=== PATIENT | female | born 1970 | race Hispanic/Latino ===

== ENCOUNTER → 2018-09-04 | Day surgery (SDC) | payer BC ==
[~2018-09-04] MED LIST: BENADRYL25 M1 PO; DEXILANT60 MG; FENTANYL CITRATE/PF 100MCG/2 ML INJ ONE; GLUCAGON FOR INJ 1 MG VIAL ONE; LIDOCAINE HCL 1% 2 ML AMP ONE; LIDOCAINE HCL 2% LOCAL INJ 5 ML SDV VIAL INJ ONE; METOCLOPRAMIDE HCL 10 MG/2ML VIAL ONE; MIDAZOLAM HCL 2 MG/2 ML VIAL ONE; NORCO 5-325 TA1 EACH PO; PANTOPRAZOLE SO40 MG PO; PROPOFOL IV EMULSION 10 MG/ML 50 ML VIAL ONE; TYLENOL WITH C1 EACH PO; ZYRTEC-D TABLE1 EACH PO
--- NOTE | 2018-09-04 19:28 | Operative Report ---
DATE OF PROCEDURE: 09/04/2018 SURGEON: Jonathan Xiong MD PROCEDURE: EGD with biopsies. INDICATIONS: Upper abdominal pain, exacerbated with meals. MEDICATIONS: The patient was done under MAC. Please see anesthesiologist's note. PROCEDURE IN DETAIL: With the patient in left lateral decubitus position, flexible fiberoptic Olympus gastroscope was introduced into the esophagus under direct visualization without any difficulty. The esophagus appeared to be within normal limits. The scope was then advanced into the gastric pouch traversing a small sliding hiatal hernia. The Francisco-en-Y anastomosis was noted to be 5 cm distal to the GE junction, it appeared intact. There were some focal nodularity noted at the GE junction, most likely postoperative changes, but biopsies were obtained. The scope was passed into the efferent loop, which was patent and biopsies were obtained. The scope was then withdrawn back into the gastric pouch and retroflexed and some postoperative changes were noted, but otherwise was unremarkable. The scope was then straightened out, it was subsequently withdrawn. The patient tolerated the procedure well. IMPRESSION: 1. Normal esophagus. 2. Small sliding hiatal hernia. 3. Status post Francisco-en-Y. Anastomosis intact. Focal nodularity at the anastomosis, most likely postoperative change, biopsied. 4. Efferent loop, patent, biopsies obtained. PLAN: Follow up histology. Increase Protonix to 40 mg one p.o. a.c. b.i.d. Jonathan Xiong MD [facility] [place]/RICHI /[id number] cc: Gopal Solomon DO
--- OUTSIDE RECORDS SUMMARY | 2018-09-06 10:36 | XMS REPORT | Clinical Summary ---
Author Author Lakhani [facility] Organization [facility] Address Unknown Phone Unavailable Care Team Providers Care Healthcare Financial Analyst Name Role Phone Asked, No Pcp PCP Unavailable Allergies Comments Active Allergy Reactions Severity Noted Date Penicillins Medications End Date Status Medication Sig Dispensed Refills Start Date Active multivitamin with Take 3 0 minerals tablet tablets by mouth daily. Active pantoprazole (PROTONIX) TK 1 T PO BID 3 40 MG EC tablet 30 MINUTES 8 BREAKFAST AND DINNER. Active cholecalciferol, vitamin Take 2 0 D3, (VITAMIN D3) 5,000 tablets by unit tablet mouth daily. Active ondansetron ODT ondansetron 4 0 (ZOFRAN-ODT) 4 MG mg disintegrating tablet disintegratin g tablet Active acetaminophen-codeine Take 1 tablet 90 tablet 2 (TYLENOL WITH CODEINE #3) by mouth 3 8 300-30 mg per tablet (three) times a day for 92 days. Active HYDROcodone-acetaminophen Take 1 tablet 0 (NORCO) 5-325 mg per by mouth 3 8 tablet (three) times a day for 92 days. Max Daily Amount: 3 tablets Active FLUoxetine (PROzac) 20 MG TK ONE C PO 3 capsule QD 8 Active cetirizine (ZyrTEC) 10 MG Take 10 mg by 0 tablet mouth daily. Active b complex vitamins Take 1 0 capsule capsule by mouth daily. Active cyanocobalamin, vitamin Place 3,000 0 B-12, (VITAMIN B-12) tablets under 1,000 mcg tablet, the tongue. sublingual Active fremanezumab-vfrm (AJOVY) Inject 225 mg 1 Syringe 5 225 mg/1.5 mL syringe under the 9 syringe skin every 30 (thirty) days. Active naloxone 4 mg/actuation One spray in 2 each 1 spray,non-aerosol one nostril, 9 may repeat every 2 to 3 minutes in alternating nostrils until medical assistance is available 09/26/2018 Active HYDROcodone-acetaminophen Take 1 tablet 90 tablet 0 (NORCO) 10-325 mg per by mouth 9 tablet every 8 (eight) hours as needed for moderate pain for up to 30 days. Max Daily Amount: 3 tablets 01/20/2018 Discontinued magnesium oxide 250 mg Take 250 mg 0 tablet by mouth daily. 01/20/2018 Discontinued riboflavin, vitamin B2, Take 1 tablet 0 400 mg tablet by mouth. 11/22/2017 Discontinued acetaminophen-codeine One po tid 90 tablet 1 (TYLENOL WITH CODEINE #3) prn for pain 8 300-30 mg per tablet 11/22/2017 gabapentin 250 mg/5 mL (5 100 mg po at 500 mL 1 mL) solution night for one 8 night, then 200 mg the second night then 300 mg the third night then 300 mg po bid for three days then tid. Hold 12/20/2017 dronabinol (MARINOL) 5 MG Take 1 60 capsule 1 capsule capsule (5 mg 8 total) by mouth 2 (two) times a day before meals for 30 days. 01/20/2018 Discontinued acetaminophen-codeine TK 1 T PO TID 1 (TYLENOL WITH CODEINE #3) PRF PAIN 8 300-30 mg per tablet 01/20/2018 Discontinued HYDROcodone-acetaminophen TK 1 T PO TID 0 (NORCO) 5-325 mg per PRN P 8 tablet 04/23/2018 Discontinued cyanocobalamin (VITAMIN Inject 1,000 0 B-12) 1,000 mcg/mL mcg into the injection shoulder, thigh, or buttocks every 30 (thirty) days. 08/27/2018 Discontinued fremanezumab-vfrm (AJOVY) Inject 225 mg 1 Syringe 3 225 mg/1.5 mL syringe under the 8 syringe skin every 30 (thirty) days. Active Problems Problem Noted Date YURIDIA (obstructive sleep apnea) 08/27/2018 Spinal stenosis of lumbar region without neurogenic claudication 10/23/2017 Chronic migraine without aura without status migrainosus, not intractable 08/17/2017 Chronic daily headache 08/17/2017 Chronic post-traumatic headache 08/17/2017 TBI (traumatic brain injury) 08/17/2017 Ganglion cyst 08/17/2017 Lumbar radiculopathy 08/17/2017 Muscle spasm 08/17/2017 Cervical dystonia 08/17/2017 Encounters Care Team Description Date Type Specialty Beba Sierra MD Chronic migraine without aura without status migrainosus, not intractable (Primary Dx); Cervical dystonia; Lumbar radiculopathy; Traumatic brain injury, without loss of consciousness, sequela (HCC); Muscle spasm; Chronic daily headache; Chronic post-traumatic headache, not intractable; Ganglion cyst; Spinal stenosis of lumbar region without neurogenic claudication; YURIDIA (obstructive sleep apnea) 08/27/2018 Office Visit Physical Medicine and Rehabilitation Jacquelin Davies MD Hip pain, acute, left (Primary Dx); Migraine with aura and without status migrainosus, not intractable 06/04/2018 Office Visit Oncology Renee Daugherty RN 06/01/2018 Telephone Physical Medicine and Rehabilitation Renee Daugherty RN 05/18/2018 Telephone Physical Medicine and Rehabilitation Beba Sierra MD Chronic migraine without aura without status migrainosus, not intractable (Primary Dx); Cervical dystonia; Lumbar radiculopathy; Traumatic brain injury, without loss of consciousness, sequela (HCC); Muscle spasm; Chronic daily headache; Chronic post-traumatic headache, not intractable; Ganglion cyst; Spinal stenosis of lumbar region without neurogenic claudication 04/23/2018 Clinical Physical Medicine and Support Rehabilitation Jacquelin Davies MD Chronic radicular lumbar pain (Primary Dx); Neck pain; Chronic migraine 02/01/2018 Office Visit Oncology Beba Sierra MD Chronic migraine without aura without status migrainosus, not intractable (Primary Dx); Cervical dystonia; Lumbar radiculopathy; Traumatic brain injury, without loss of consciousness, sequela; Ganglion cyst; Muscle spasm; Chronic daily headache; Chronic post-traumatic headache, not intractable; Spinal stenosis of lumbar region without neurogenic claudication 01/20/2018 Clinical Physical Medicine and Support Rehabilitation Renee Daugherty RN 12/23/2017 Telephone Physical Medicine and Rehabilitation Beba Sierra MD Chronic migraine without aura without status migrainosus, not intractable (Primary Dx); Cervical dystonia; Lumbar radiculopathy; Traumatic brain injury, without loss of consciousness, sequela; Ganglion cyst; Muscle spasm; Chronic daily headache; Chronic post-traumatic headache, not intractable; Spinal stenosis of lumbar region without neurogenic claudication 11/20/2017 Office Visit Physical Medicine and Rehabilitation Jacquelin Davies MD 11/02/2017 Hospital Radiology Encounter Jacquelin Davies MD Chronic daily headache (Primary Dx); Low back pain with sciatica, sciatica laterality unspecified, unspecified back pain laterality, unspecified chronicity; Obesity (BMI 30.0-34.9); Status post bariatric surgery 11/02/2017 Office Visit Oncology Vadim Caballero MA 10/26/2017 Telephone Physical Medicine and Rehabilitation Beba Sierra MD Lumbar stenosis with neurogenic claudication (Primary Dx); Chronic migraine without aura without status migrainosus, not intractable; Chronic post-traumatic headache, not intractable; Cervical dystonia; Traumatic brain injury, without loss of consciousness, sequela; Ganglion cyst; Lumbar radiculopathy; Muscle spasm; Spinal stenosis of lumbar region without neurogenic claudication 10/23/2017 Office Visit Physical Medicine and Rehabilitation Renee Daugherty RN 10/15/2017 Telephone Physical Medicine and Rehabilitation Vadim Caballero MA 09/29/2017 Telephone Physical Medicine and Rehabilitation Beba Sierra MD Chronic migraine without aura without status migrainosus, not intractable (Primary Dx); Cervical dystonia; Lumbar radiculopathy; Traumatic brain injury, without loss of consciousness, sequela; Ganglion cyst; Muscle spasm; Chronic daily headache; Chronic post-traumatic headache, not intractable 09/28/2017 Clinical Physical Medicine and Support Rehabilitation after 09/05/2017 Family History Medical History Relation Name Comments Diabetes Mother Heart disease Mother Hyperlipidemia Mother Hypertension Mother Relation Name Status Comments Father Mother Alive Social History Date Tobacco Use Types Packs/Day Years Used Former Smoker Cigarettes 1.5 20 Smokeless Tobacco: Never Used Tobacco Cessation: Counseling Given: No Alcohol Use Drinks/Week oz/Week Comments Yes occasional Sex Assigned at Date Recorded Not on file Industry Job Start Date Occupation Not on file Not on file Not on file Travel End Travel History Travel Start No recent travel history available. Last Filed Vital Signs Time Taken Vital Sign Reading 08/27/2018 11:31 AM MEDICAL SOCIOLOGIST Blood Pressure 116/85 08/27/2018 11:31 AM MEDICAL SOCIOLOGIST Pulse 61 06/04/2018 1:21 PM MEDICAL SOCIOLOGIST Temperature 36.7 C (98 F) - Respiratory Rate - - Oxygen Saturation - - Inhaled Oxygen - Concentration 06/04/2018 1:21 PM MEDICAL SOCIOLOGIST Weight 101 kg (223 lb 1.6 oz) 02/01/2018 10:37 AM CDT Height 170.2 cm (5' 7") 06/04/2018 1:21 PM MEDICAL SOCIOLOGIST Body Mass Index 34.94 Plan of Treatment Care Team Description Date Type Specialty Beba Sierra MD [address] [address] [phone] 11/26/2018 Office Visit Physical Medicine and Rehabilitation Health Maintenance Due Date Last Done Comments CERVICAL CANCER SCREENING 09/07/1991 INFLUENZA VACCINE 02/03/2018 Procedures Comments Procedure Name Priority Date/Time Associated Diagnosis AL NEEDLE EMG GUIDANCE Routine 04/23/2018 Chronic migraine without FOR CHEMODENERVATION 9:30 AM CDT aura without status migrainosus, not intractable AL CHEMODENERVATION Routine 04/23/2018 Chronic migraine without MUSCLE NECK UNILAT FOR 9:30 AM CDT aura without status DYSTONIA migrainosus, not intractable AL CHEMODERVATE Routine 04/23/2018 Chronic migraine without FACIAL/TRIGEM/CERV MUSC 9:30 AM CDT aura without status MIGRAINE migrainosus, not intractable DRUG SCREEN Routine 01/26/2018 AL NEEDLE EMG GUIDANCE Routine 01/20/2018 Chronic migraine without FOR CHEMODENERVATION 10:00 AM CDT aura without status migrainosus, not intractable AL CHEMODENERVATION Routine 01/20/2018 Chronic migraine without MUSCLE NECK UNILAT FOR 10:00 AM CDT aura without status DYSTONIA migrainosus, not intractable AL CHEMODERVATE Routine 01/20/2018 Chronic migraine without FACIAL/TRIGEM/CERV MUSC 10:00 AM CDT aura without status MIGRAINE migrainosus, not intractable MRI LUMBAR SPINE LIMITED Routine 10/28/2017 WO CONTRAST MRI SPINE EXTERNAL STUDY Routine 10/27/2017 7:13 PM CDT AL NEEDLE EMG GUIDANCE Routine 09/28/2017 Cervical dystonia FOR CHEMODENERVATION 3:15 PM CDT Chronic migraine without aura without status migrainosus, not intractable AL NEEDLE EMG GUIDANCE Routine 09/28/2017 Cervical dystonia FOR CHEMODENERVATION 3:15 PM CDT Chronic migraine without aura without status migrainosus, not intractable AL CHEMODENERVATION Routine 09/28/2017 Cervical dystonia MUSCLE NECK UNILAT FOR 3:15 PM CDT Chronic migraine without DYSTONIA aura without status migrainosus, not intractable AL CHEMODERVATE Routine 09/28/2017 Cervical dystonia FACIAL/TRIGEM/CERV MUSC 3:15 PM CDT Chronic migraine without MIGRAINE aura without status migrainosus, not intractable after 09/05/2017 Results * Botulinum Toxin Injection (04/23/2018 9:30 AM CDT) Narrative Performed At Beba Sierra MD 04/23/2018 12:34 PM Botulinum Injection Date/Time: 04/23/2018 8:50 AM Performed by: BEBA SIERRA Authorized by: BEBA SIERRA Consent: Consent obtained:Written Consent given by:Patient Risks discussed:Bleeding, excessive weakness, muscle atrophy, venous thrombosis and pain and discomfort Benefits discussed:Decreased muscle tightness, increased joint range of motion and decreased pain [place] protocol: Procedure explained and questions answered to patient or proxy's satisfaction: yes Test results available and properly labeled: no Relevant documents present and verified: yes Imaging studies available: no Required blood products, implants, devices, and special equipment available: no Site/side marked: no Immediately prior to procedure a time out was called: no Patient identity confirmed:Verbally with patient and provided demographic data Pre-procedure details: Limited electromyography confirmed needle location within the muscle: Yes In some muscles, electrical stimulation was used to localize muscle: No Procedure details: Agent Botulinum Toxin:Botox Pharmacy: Medications provided by specialty pharmacy - do not bill patient Total Units Injected:200 Botox Medications Administered:200 Units onabotulinumtoxinA 100 Units Head/Face Muscles: Occipitalis - Left Units:25 Occipitalis - Right Units:25 Frontalis - Left Units:10 Frontalis - Right Units:10 Temporalis - Left Units:25 Temporalis - Right Units:25 Cervail/Scapular Muscles: Trapezius - Left Units:40 Trapezius - Right Units:40 EMG Guidance Used: emg guidance used Number of EMG Guidance Used:1 Post-procedure details: Patient tolerance of procedure:Tolerated well, no immediate complications Comments: Benefits discussed included, but were not limited to decreased muscle tightness, increased joint range of motion, and decreased pain. Risks discussed included but not limited to pain and discomfort, bleeding excessive weakness, venous thrombosis, and muscle atrophy. Details of Procedure: Muscles to be treated were identified using anatomical landmarks described by Andreeaet al;(1994) Skin was cleaned with alcohol.A hollow monopolar needle was introduced to the target muscles. Prior to injection, the needle plunger was aspirated to make sure that the needle was not within a blood vessel. There was no blood retrieved on aspiration. * Drug Screen (01/26/2018) Narrative Performed At * Botulinum Toxin Injection (01/20/2018 10:00 AM CDT) Narrative Performed At Beba Sierra MD 01/20/2018 12:37 PM Botulinum Injection Date/Time: 01/20/2018 9:28 AM Performed by: BEBA SIERRA Authorized by: BEBA SIERRA Consent: Consent obtained:Written Consent given by:Patient Risks discussed:Bleeding, excessive weakness, muscle atrophy, venous thrombosis and pain and discomfort Benefits discussed:Decreased muscle tightness, increased joint range of motion and decreased pain [place] protocol: Procedure explained and questions answered to patient or proxy's satisfaction: yes Test results available and properly labeled: no Relevant documents present and verified: yes Imaging studies available: no Required blood products, implants, devices, and special equipment available: no Site/side marked: no Immediately prior to procedure a time out was called: no Patient identity confirmed:Verbally with patient and provided demographic data Pre-procedure details: Limited electromyography confirmed needle location within the muscle: Yes In some muscles, electrical stimulation was used to localize muscle: No Procedure details: Agent Botulinum Toxin:Botox (lot [id number] exp 07/2020) Pharmacy: Medications provided by specialty pharmacy - do not bill patient Total Units Injected:200 Botox Medications Administered:200 Units onabotulinumtoxinA 100 Units Head/Face Muscles: Occipitalis - Left Units:25 Occipitalis - Right Units:25 Frontalis - Left Units:10 Frontalis - Right Units:10 Temporalis - Left Units:25 Temporalis - Right Units:25 Cervail/Scapular Muscles: Trapezius - Left Units:40 Trapezius - Right Units:40 EMG Guidance Used: emg guidance used Number of EMG Guidance Used:1 Post-procedure details: Patient tolerance of procedure:Tolerated well, no immediate complications Comments: Benefits discussed included, but were not limited to decreased muscle tightness, increased joint range of motion, and decreased pain. Risks discussed included but not limited to pain and discomfort, bleeding excessive weakness, venous thrombosis, and muscle atrophy. Details of Procedure: Muscles to be treated were identified using anatomical landmarks described by Andreeaet al;(1994) Skin was cleaned with alcohol.A hollow monopolar needle was introduced to the target muscles. Prior to injection, the needle plunger was aspirated to make sure that the needle was not within a blood vessel. There was no blood retrieved on aspiration. * MRI Lumbar Spine Limited Wo Contrast (10/28/2017) Narrative Performed At * MRI Spine External Study (10/27/2017 7:13 PM CDT) Narrative Performed At This exam was not acquired at a [facility] facility and has not been [facility] interpreted by a [facility] Provider.The exam was imported into our imaging system for comparisons purposes. Performing Organization Address City/State/Zipcode Phone Number [facility] [address] [place] [address] * Botulinum Toxin Injection (09/28/2017 3:15 PM CDT) Narrative Performed At Beba Sierra MD 09/28/20173:55 PM Botulinum Injection Date/Time: 09/28/2017 2:52 PM Performed by: BEBA SIERRA Authorized by: BEBA SIERRA Consent: Consent obtained:Written Consent given by:Patient Risks discussed:Bleeding, excessive weakness, muscle atrophy, venous thrombosis and pain and discomfort Benefits discussed:Decreased muscle tightness, increased joint range of motion and decreased pain [place] protocol: Procedure explained and questions answered to patient or proxy's satisfaction: yes Test results available and properly labeled: no Relevant documents present and verified: yes Imaging studies available: no Required blood products, implants, devices, and special equipment available: no Site/side marked: no Immediately prior to procedure a time out was called: no Patient identity confirmed:Verbally with patient and provided demographic data Pre-procedure details: Limited electromyography confirmed needle location within the muscle: Yes In some muscles, electrical stimulation was used to localize muscle: No Procedure details: Agent Botulinum Toxin:Botox Pharmacy: Medications provided by specialty pharmacy - do not bill patient Total Units Injected:200 Botox Medications Administered:200 Units onabotulinumtoxinA 100 Units Head/Face Muscles: Frontalis - Left Units:10 Frontalis - Right Units:10 Temporalis - Left Units:25 Temporalis - Right Units:25 Cervail/Scapular Muscles: Splenius Capitis - Left Units:25 Splenius Capitis - Right Units:25 Trapezius - Left Units:40 Trapezius - Right Units:40 EMG Guidance Used: emg guidance used Number of EMG Guidance Used:2 Post-procedure details: Patient tolerance of procedure:Tolerated well, no immediate complications Comments: Benefits discussed included, but were not limited to decreased muscle tightness, increased joint range of motion, and decreased pain. Risks discussed included but not limited to pain and discomfort, bleeding excessive weakness, venous thrombosis, and muscle atrophy. Details of Procedure: Muscles to be treated were identified using anatomical landmarks described by Andreeaet al;(1994) Skin was cleaned with alcohol.A hollow monopolar needle was introduced to the target muscles. Prior to injection, the needle plunger was aspirated to make sure that the needle was not within a blood vessel. There was no blood retrieved on aspiration. after 09/05/2017 Insurance Payer Benefit Subscriber ID Type Phone Address Plan / Group BCBS BCBS xxxxxxxxxxxx PPO CHOICE PPO/CARRIE FARIA PPO Advance Directives Patient has advance care planning documents on file. For more information, chastity han contact: Kar Nguyễn [address] [place] [address]
== END | disposition home or self-care (01) ==
LOC: OR 09:26
PROVIDERS: ATTEND Internal Medicine Gastroenterology
DX: R10.10 Upper abdominal pain, unspecified (principal); K44.9 Diaphragmatic hernia without obstruction or gangrene; K22.9 Disease of esophagus, unspecified; F41.9 Anxiety disorder, unspecified; Z98.84 Bariatric surgery status; Z98.0 Intestinal bypass and anastomosis status
CPT/HCPCS: 43239; J1610; J2001 ×2; J2250; J2704; J2765

== ENCOUNTER 2019-06-05 19:51 | Inpatient (IN) | payer BC ==
[~2019-06-05] VITALS: Ht 170.2 cm; Wt 90.7 kg
[~2019-06-05 19:51] MED LIST changes: -FENTANYL CITRATE/PF 100MCG/2 ML INJ ONE; -GLUCAGON FOR INJ 1 MG VIAL ONE; -LIDOCAINE HCL 1% 2 ML AMP ONE; -LIDOCAINE HCL 2% LOCAL INJ 5 ML SDV VIAL INJ ONE; -METOCLOPRAMIDE HCL 10 MG/2ML VIAL ONE; -MIDAZOLAM HCL 2 MG/2 ML VIAL ONE; -PROPOFOL IV EMULSION 10 MG/ML 50 ML VIAL ONE
[2019-06-05] MEDS ORDERED: SODIUM CHLORIDE 0.9% 1000ML 1,000 ML IV SCH ×2 (20:15→20:45)
[2019-06-05] MEDS ORDERED: PANTOPRAZOLE INJ 40 MG in SODIUM CHLORIDE 0.9% 50ML 50 ML IV ONE (20:15)
[2019-06-05] MEDS ORDERED: PANTOPRAZOL 40MG/SOD CHL 0.9% 50 ML IV ONE (20:41)
[2019-06-05] MEDS ORDERED: PANTOPRAZOLE INJ 80 MG in SODIUM CHLORIDE 0.9% 100 ML IV SCH (20:45)
[2019-06-05] MEDS ORDERED: SODIUM CHLORIDE FLUSH 10 ML SYR INJ PRN (20:45)
--- NOTE | 2019-06-05 21:37 | NUR ---
[facility] CALLED - ETA 45MINS
[2019-06-05] MEDS: SODIUM CHLORIDE 0.9% 1000ML 1,000 ML IV SCH (22:00)
[2019-06-05 23:45] VITALS: BP 94/59
[2019-06-05] MEDS ORDERED: PANTOPRAZOLE 40 MG 10ML VIAL ONE (23:57)
[2019-06-05] MEDS ORDERED: SODIUM CHLORIDE 0.9% 100 ML ONE (23:59)
[2019-06-06] VITALS (18 sets, daily range): BP systolic 98–141; BP diastolic 56–79
[2019-06-06 00:11] LABS: BASOPHILS % 0.4 % (0.0-1.0); EOSINOPHILS # (AUTO) 0.1 (0.0-0.4); EOSINOPHILS % 1.2 % (0.0-6.0); HEMATOCRIT 25.5 % (34.2-44.1); HEMOGLOBIN 8.5 g/dL (12.0-16.0); LYMPHOCYTES # (AUTO) 2.1 (1.0-3.2); LYMPHOCYTES % 30.2 % (18.0-39.1); MEAN CORPUSCULAR HEMOGLOBIN 30.7 pg (28-32); MEAN CORPUSCULAR HGB CONC 33.3 g/dL (31-35); MEAN CORPUSCULAR VOLUME 92.1 fL (81-99); MONOCYTES # (AUTO) 0.5 (0.2-0.8); MONOCYTES % 7.5 % (4.4-11.3); NEUTROPHILS # (AUTO) 4.1 (2.1-6.9); NEUTROPHILS % 60.1 % (38.7-80.0); PLATELET COUNT 214 x10e3/uL (140-360); RED BLOOD COUNT 2.77 x10e6/uL (3.6-5.1); RED CELL DISTRIBUTION WIDTH 12.6 % (11.7-14.4)
[2019-06-06] MEDS ORDERED: PANTOPRAZOLE INJ 80 MG in SODIUM CHLORIDE 0.9% 100 ML IV SCH (01:30)
[2019-06-06] MEDS ORDERED: ACETAMINOPHEN 325 MG TAB PO PRN (02:00)
--- NOTE | 2019-06-06 03:08 | Consultation ---
DATE OF CONSULTATION: 06/06/2019 Pulmonary Critical Care Medicine Consult ADDITIONAL REFERRING PHYSICIAN: Dr. Xiong. REASON FOR REFERRAL: Critical illness. HISTORY OF PRESENT ILLNESS: Ms. Friedman is a pleasant 48-year-old female with GI bleed. The patient well known to have had gastric Francisco-en-Y surgery for weight loss in 2012. 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 The patient has therefore had blood transfusions and iron infusions in the past. The patient with revision of her bypass a couple of years ago due to peptic ulcer disease she tells me. The patient was in her usual state health until couple of days ago. The patient began to experience black stool primarily. The patient then experienced dizziness later. The patient also had some red blood per rectum noted, although with less than the black stool. She informs us that her blood count including hemoglobin was recently 13. The patient comes to the emergency room for further evaluation. In the emergency room, her hemoglobin is 8.5 and hematocrit 25.5. The patient with heart rate of 78, but blood pressure 89/61. The patient at this point is admitted. PAST MEDICAL HISTORY: Francisco-en-Y bypass surgery in 2012, revision about . Multiple GI bleeds secondary to peptic ulcer disease predominantly. MEDICATIONS: Medication list reviewed per the chart record. ALLERGIES: PENICILLINS AND PLASTIC TAPE. 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 No smoking. No drinking. No drugs. FAMILY HISTORY: Noncontributory. REVIEW OF SYSTEMS: GENERAL: No weight gain. OPHTHALMOLOGIC: No floaters. ENT: No poor dentition. ENDOCRINE: No thyroid disease. PULMONARY: No asthma. CARDIAC: No heart attack. GI: No constipation. : No blood in the urine. DERMATOLOGIC: No rash. NEUROLOGIC: No seizures. PSYCHIATRIC: No depression. OBJECTIVE: VITAL SIGNS: Afebrile, current vital signs noted and reviewed per the chart record. GENERAL: In no acute distress. Alert and calm. She feels tired. HEENT: Normocephalic and atraumatic. NECK: Supple. Throat midline. LUNGS: Bilateral air entry, clear. CARDIOVASCULAR: S1 and S2. No murmurs, rubs, or gallops. ABDOMEN: Soft and nontender. EXTREMITIES: No clubbing, no cyanosis, there is no edema. INTEGUMENT: No rash. No purpura. LABORATORY DATA: Labs reviewed per the chart record. Although, hematocrit 25.5%, MCV is 92, RDW is 12.6. RBC count 2.7 million. IMPRESSION AND PLAN: 1. Acute/subacute gastrointestinal bleed, likely peptic ulcer disease. 2. Anemia, blood loss and other factors. 3. Chronic anemia with iron deficiency as a component, on outpatient injections. 4. History of bariatric surgery, Francisco-en-Y. 5. Hypotension, dizziness. Serial H and H. we will transfuse for acute bleeding or further drops in her hematocrit. Continue PPI drip. GI consult for suspected need of endoscopy. We will check iron studies. The patient may need iron transfusions, but we will decide. Thank you very much, Dr. Worley/Tyrese, for this consult. Please call for questions. MD RUDDY Reza/RICHI /[id number] DINH
[2019-06-06 05:36] LABS: BASOPHILS % 0.5 % (0.0-1.0); EOSINOPHILS # (AUTO) 0.1 (0.0-0.4); EOSINOPHILS % 2.1 % (0.0-6.0); HEMATOCRIT 24.9 % (34.2-44.1); HEMOGLOBIN 8.1 g/dL (12.0-16.0); LYMPHOCYTES # (AUTO) 2.4 (1.0-3.2); MEAN CORPUSCULAR HEMOGLOBIN 29.7 pg (28-32); MEAN CORPUSCULAR HGB CONC 32.5 g/dL (31-35); MEAN CORPUSCULAR VOLUME 91.2 fL (81-99); MONOCYTES # (AUTO) 0.5 (0.2-0.8); MONOCYTES % 8.9 % (4.4-11.3); NEUTROPHILS # (AUTO) 2.7 (2.1-6.9); PLATELET COUNT 176 x10e3/uL (140-360); RED BLOOD COUNT 2.73 x10e6/uL (3.6-5.1); RED CELL DISTRIBUTION WIDTH 12.7 % (11.7-14.4)
[2019-06-06 05:54] LABS: ALANINE AMINOTRANSFERASE 6 IU/L (0-55); ALBUMIN 2.9 g/dL (3.5-5.0); ALBUMIN/GLOBULIN RATIO 1.3 (0.8-2.0); ALKALINE PHOSPHATASE 48 IU/L (40-150); ANION GAP 9.6 mmol/L (8-16); BLOOD UREA NITROGEN 15 mg/dL (7-26); BUN/CREATININE RATIO 27 (6-25); CALCIUM 7.7 mg/dL (8.4-10.2); CARBON DIOXIDE 24 mmol/L (22-29); CHLORIDE 110 mmol/L (98-107); CREATININE, SERUM 0.55 mg/dL (0.57-1.11); EST GLOMERULAR FILTRATION RATE > 60 ML/MIN (60-); GLUCOSE 94 mg/dL (74-118); POTASSIUM 3.6 mmol/L (3.5-5.1); SODIUM 140 mmol/L (136-145)
[2019-06-06 06:14] LABS: FERRITIN 110.92 ng/mL (4.63-204.00)
--- NOTE | 2019-06-06 07:15 | NUR ---
CALLED FOR CONSULT INSTRUCTED IN ORDER. WAITING FOR CALL BACK
[2019-06-06] MEDS: SODIUM CHLORIDE 0.9% 1000ML 1,000 ML IV SCH ×3 (07:22→23:59)
--- NOTE | 2019-06-06 09:27 | NUR ---
ADMIT FOR CALLED TO OFFICE, MADE AWARE
[2019-06-06] MEDS ORDERED: CYANOCOBALAMIN INJ 1,000 MCG/ML VIAL IM NR (10:00)
[2019-06-06] MEDS: PANTOPRAZOL 40MG/SOD CHL 0.9% 50 ML IV SCH ×3 (11:39→22:05)
[2019-06-06] MEDS ORDERED: IRON DEXTRAN INJ 50 MG in SODIUM CHLORIDE 0.9% 100 ML 100 ML IV ONE (11:45)
--- NOTE | 2019-06-06 12:19 | NUR ---
Nutrition Screen Note RD Recommendation for Physician: - When feasible ADAT to goal of GI Soft Plan of Care: RD following, monitoring for tolerance and adequacy Nutrition reason for involvement: Nutrition Risk Trigger- MST2 Primary Diagnose(s): UGIB, anemia PMH: PUD, multiple GIB, marjorie-en-y gastric bypass with revision Ht: 67 in Wt: 200 lb BMI: 31.3kg/m2 IBW: [address] Assessment: (06/06) 48 YOF admitted for upper GIB, seen today per MST screen. 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 Pt reports abdominal pain yesterday, no GI distress up until acute illness. Pt with no questions or concerns at time of visit. Pt discussed during am rounds. Chart reviewed. LBM 06/05. Skin intact. Labs and meds reviewed, on IV pantoprazole. Will continue to monitor. Current Diet: NPO Malnutrition Evaluation (06/06/19) The patient does not meet criteria for a specified degree of malnutrition at this time. Will re-evaluate at follow-up as appropriate. Diet Education Needs Assessment: Diet education not indicated. Diet tolerance: pending Nutrition Care Level: low Signed: Sarah Armstrong RD, LD, [facility]
[2019-06-06 12:25] LABS: BASOPHILS % 0.4 % (0.0-1.0); EOSINOPHILS # (AUTO) 0.1 (0.0-0.4); LYMPHOCYTES # (AUTO) 1.8 (1.0-3.2); LYMPHOCYTES % 38.4 % (18.0-39.1); MEAN CORPUSCULAR HEMOGLOBIN 30.7 pg (28-32); MEAN CORPUSCULAR HGB CONC 33.3 g/dL (31-35); MONOCYTES # (AUTO) 0.4 (0.2-0.8); MONOCYTES % 7.9 % (4.4-11.3); NEUTROPHILS # (AUTO) 2.3 (2.1-6.9); NEUTROPHILS % 50.9 % (38.7-80.0); PLATELET COUNT 164 x10e3/uL (140-360); RED BLOOD COUNT 2.61 x10e6/uL (3.6-5.1); RED CELL DISTRIBUTION WIDTH 12.8 % (11.7-14.4)
[2019-06-06] MEDS: ACETAMINOPHEN 1000 MG/100 ML IV PRN ×3 (13:42→21:45)
--- NOTE | 2019-06-06 13:48 | NUR ---
PAGED FOR NEW CONSULT
[2019-06-06] MEDS ORDERED: SODIUM CHLORIDE 0.9% 250ML 250 ML IV ONE (17:30)
--- NOTE | 2019-06-06 19:44 | NUR ---
Report called to Madhavi LUCIO.
--- NOTE | 2019-06-06 19:50 | NUR ---
Transferred per wheelchair to 204. All belongings with patient. Family member at bedside.
--- NOTE | 2019-06-06 20:00 | NUR ---
RECEIVED PATIENT FROM ICU. PATIENT IS AAOX3, RESP EVEN AND UNLABORED. NO ACUTE DISTRESS NOTED. ORIENTED TO ROOM. CALL LIGHT WITHIN REACH. INSTRUCT TO CALL FOR ASSISTANCE. BED LOW/LOCKED. CONTINUE TO MONITOR CLOSELY
[2019-06-06] MEDS ORDERED: SODIUM CHLORIDE 0.9% 250ML 250 ML ONE (21:34)
--- NOTE | 2019-06-06 22:15 | NUR ---
INITIATED 1ST UNIT OF BLOOD TRANSFUSION. VITAL SIGN STABLE AT THIS TIME. VERIFIED WITH 2ND RN. CONTINUE TO MONITOR CLOSELY
[2019-06-06] MEDS ORDERED: CYANOCOBALAMIN INJ 1,000 MCG/ML VIAL IM ONE (22:30)
[2019-06-07] VITALS (9 sets, daily range): BP systolic 107–156; BP diastolic 56–70
--- NOTE | 2019-06-07 02:30 | NUR ---
INITIATED 2ND UNIT OF BLOOD TRANSFUSION. VITAL SIGN STABLE AT THIS TIME. VERIFIED WITH 2ND RN. CONTINUE TO MONITOR CLOSELY
[2019-06-07] MEDS: PANTOPRAZOL 40MG/SOD CHL 0.9% 50 ML IV SCH ×5 (02:45→20:50)
[2019-06-07] MEDS: SODIUM CHLORIDE 0.9% 1000ML 1,000 ML IV SCH ×3 (04:45→20:45)
[2019-06-07 05:05] LABS: BASOPHILS % 0.6 % (0.0-1.0); EOSINOPHILS # (AUTO) 0.1 (0.0-0.4); EOSINOPHILS % 2.7 % (0.0-6.0); HEMATOCRIT 28.1 % (34.2-44.1); HEMOGLOBIN 9.6 g/dL (12.0-16.0); LYMPHOCYTES % 42.4 % (18.0-39.1); MEAN CORPUSCULAR HEMOGLOBIN 30.2 pg (28-32); MEAN CORPUSCULAR HGB CONC 34.2 g/dL (31-35); MEAN CORPUSCULAR VOLUME 88.4 fL (81-99); MONOCYTES # (AUTO) 0.4 (0.2-0.8); MONOCYTES % 8.8 % (4.4-11.3); NEUTROPHILS # (AUTO) 2.2 (2.1-6.9); NEUTROPHILS % 45.1 % (38.7-80.0); PLATELET COUNT 172 x10e3/uL (140-360); RED BLOOD COUNT 3.18 x10e6/uL (3.6-5.1); RED CELL DISTRIBUTION WIDTH 13.2 % (11.7-14.4)
[2019-06-07 05:17] LABS: INR 1.07; PROTHROMBIN TIME 14.4 seconds (11.9-14.5)
[2019-06-07 05:25] LABS: ANION GAP 11.3 mmol/L (8-16); BLOOD UREA NITROGEN 6 mg/dL (7-26); BUN/CREATININE RATIO 11 (6-25); CALCIUM 7.9 mg/dL (8.4-10.2); CARBON DIOXIDE 22 mmol/L (22-29); CHLORIDE 109 mmol/L (98-107); CREATININE, SERUM 0.53 mg/dL (0.57-1.11); EST GLOMERULAR FILTRATION RATE > 60 ML/MIN (60-); GLUCOSE 89 mg/dL (74-118); POTASSIUM 3.3 mmol/L (3.5-5.1); SODIUM 139 mmol/L (136-145)
[2019-06-07] MEDS ORDERED: CYANOCOBALAMIN INJ 1,000 MCG/ML VIAL IM SCH ×2 (09:00→17:00)
--- NOTE | 2019-06-07 13:21 | NUR ---
Patient arrived back to the floor from EGD procedure. She is awake alert and oriented x3. She has no complaints at this time. I explained she is on a full liquid diet for now. IV to the left ac is leaking post procedure. Will start new IV. she denies needing anything at this time.
[2019-06-07] MEDS ORDERED: MIDAZOLAM HCL 2 MG/2 ML VIAL ONE (14:50)
[2019-06-07] MEDS ORDERED: FENTANYL CITRATE/PF 100MCG/2 ML INJ ONE (14:50)
[2019-06-07] MEDS: SUCRALFATE 1 GM TAB PO SCH ×2 (17:15→20:50)
[2019-06-07] MEDS ORDERED: PROPOFOL IV EMULSION 10 MG/ML 50 ML VIAL ONE (18:40)
--- NOTE | 2019-06-07 19:48 | Operative Report ---
DATE OF PROCEDURE: 06/07/2019 SURGEON: Jonathan Xiong MD PROCEDURE: EGD with biopsies. INDICATIONS FOR EGD: History of melena, anemia. The patient is status post Francisco-en-Y. MEDICATIONS: The patient was done under MAC, please see anesthesiologist's note. PROCEDURE IN DETAIL: With the patient in left lateral decubitus position, a flexible fiberoptic Olympus gastroscope was introduced into the esophagus under direct visualization without any difficulty. There was some patchy erythema noted in the distal esophagus. The scope was then advanced with ease into the stomach and the patient was apparently status post Francisco-en-Y. Anastomosis appeared intact. A large approximately 1.5 cm marginal ulcer was noted. There was no active bleeding. No stigmata of recent hemorrhage. Biopsies were obtained. The efferent loop was patent. The scope was subsequently withdrawn. The patient tolerated procedure well. IMPRESSION: 1. Distal esophagitis, mild. 2. Status post Francisco-en-Y. Anastomosis intact. Approximately 1.5 cm marginal ulcer was noted without active bleeding or stigmata of recent hemorrhage. Biopsies obtained. 3. Efferent loop patent. PLAN: Follow up histology. Continue PPI drip. Add Carafate 1 g p.o. a.c. t.i.d. and at bedtime. Initiate full liquid diet. Jonathan Xiong MD [facility] [place]/RICHI /[id number] cc: Phil Xiong MD
--- NOTE | 2019-06-07 20:50 | NUR ---
PATIENT RESTING IN BED AOX4, NO SIGNS OF DISTRESS NOTED. FAMILY MEMBERS ARE AT BEDSIDE AND PATIENT VOICES NO PAIN AT THIS TIME. IV FLUIDS ARE RUNNING AT ORDERED RATE, BED IS IN LOW POSITION AND LOCKED, CALL LIGHT IS WITHIN REACH, WILL CONTINUE TO MONITOR.
--- NOTE | 2019-06-08 00:39 | Consultation ---
DATE OF CONSULTATION: 06/06/[address] Phil Xiong. HISTORY OF PRESENT ILLNESS: Toshia Friedman is a 48-year-old female, referred to me for evaluation of anemia. The patient claims that she has hematochezia. The patient claims that she has a mobile equipment operator taking care of her downtown. The patient claims that I have seen her 4 years back and I had refused to give her the blood transfusion and she was discharged. Subsequently, she went to see her own mobile equipment operator and the patient was given blood transfusion. This was the introduction in intensive care unit. I asked her if she wants me to not be the mobile equipment operator today, however, her answer was since I was there I should see her and treat her. However, her mobile equipment operator downtown should be kept in the loop. HISTORY OF PAST ILLNESS: History of gastric Francisco-en-Y surgery for weight loss in 2012. The patient had multiple bleeds from primary peptic ulcer disease. The patient has had multiple blood transfusions and multiple iron infusions. The patient claims that her last hemoglobin was 13 a few weeks back. The patient claims that she had black stool for the last 2 days. Subsequently felt dizzy. Subsequently, the stool was red. Subsequently, the patient lands up here with a hemoglobin of 8.5. SOCIAL HISTORY: Noncontributory. FAMILY HISTORY: Noncontributory. ALLERGIES: REPORTED TO PENICILLIN AND PLASTIC TAPE. SURGERIES: History of Francisco-en-Y bypass in 2012. The patient had 2 revisions in 2015 and 2016. PAST MEDICAL HISTORY: Multiple admissions for GI bleed. REVIEW OF SYSTEMS: HEENT: Normal. CARDIAC: Normal. RESPIRATORY: Normal. GI: Multiple GI bleeds. : Normal. MUSCULOSKELETAL: Normal. SKIN: Normal. BREASTS: Normal. NEUROENDOCRINE: Essentially normal. PHYSICAL EXAMINATION: GENERAL: A moderately built female, anemic. NECK: No adenopathy. HEART: Within normal limits. LUNGS: Clear. BREASTS: Deferred. ABDOMEN: Deferred. RECTAL: Deferred. VAGINAL: Deferred. CENTRAL NERVOUS SYSTEM: Essentially normal. EXTREMITIES: Essentially normal. LABORATORY DATA: Shows a hemoglobin of 8.5, hematocrit of 25.5, white count of 6780, and platelets of 214,000, MCV normal at 92.1, MCHC normal at 33.3, RDW normal at 12.6. Chemistry: Sodium 140, potassium 3.6, chloride 110, CO2 of 24, BUN 15, creatinine 0.5, glucose 94, calcium low at 7.7, iron 68. Iron binding capacity low at 224. Ferritin level 110.92. Total protein low at 5.1, albumin low at 2.9, globulin is low at 2.2. The patient did not have any imaging so far. A GI consultation with Dr. Jonathan Xiong has been obtained. Vitamin B12 reported at 256. IMPRESSION: 1. Anemia of blood loss. 2. Possible anemia of chronic disease. 3. Hypoproteinemia. 4. Hypoalbuminemia. 5. 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 6. History of multiple gastrointestinal bleeds. 7. History of gastric bypass and revisions at least twice since 2002. 8. Hypotension at the time of admission. 9. Morbid obesity. PLAN, COMMENTS, AND SUGGESTIONS: Because of the blood loss as she described the hemoglobin being 13, she definitely needs blood transfusion. EGD and colonoscopy are suggested. Once stable, I will sign off as she always compares the mobile equipment operator downtown and me, which I do not appreciate. Thank you very much for allowing me to participate in the management of this patient. The INR has been normal at 1.07 and PTT normal at 30.3. TSH is also suggested in this patient. MD FILIBERTO Carrington/MODL /[id number] cc: MD Phil Low MD
[2019-06-08] MEDS: PANTOPRAZOL 40MG/SOD CHL 0.9% 50 ML IV SCH (02:04)
[2019-06-08] MEDS: SODIUM CHLORIDE 0.9% 1000ML 1,000 ML IV SCH (02:04)
[2019-06-08 04:28] VITALS: BP 123/65
--- NOTE | 2019-06-08 04:57 | NUR ---
Pulmonary Critical Care Medicine DATE OF CONSULTATION: 06/07/2019 SUBJECTIVE able to ambulate in the room no further clinical bleeding she received blood transfusions going for endoscopy REVIEW OF SYSTEMS: no headaches, no rash OBJECTIVE: VITAL SIGNS: current vital signs noted and reviewed per the chart record. GENERAL: no acute distress. Alert and calm. HEENT: Normocephalic and atraumatic. NECK: Supple. Throat midline. LUNGS: Bilateral air entry, clear. CARDIOVASCULAR: S1 and S2. No murmurs, rubs, or gallops. ABDOMEN: Soft and nontender. EXTREMITIES: No clubbing, no cyanosis, no edema. INTEGUMENT: No rash. No purpura. LABORATORY DATA: hb 9.6, wbc 4.8. k 3.3 IMPRESSION AND PLAN: 1. Acute/subacute gastrointestinal bleed, likely peptic ulcer disease. 2. Anemia, blood loss and other factors. 3. Chronic anemia with iron deficiency as a component, on outpatient injections. 4. History of bariatric surgery, Francisco-en-Y. 5. Hypotension, dizziness. Due to acute bleed Serial H and H continue transfuse for acute bleeding as performed PPI drip endoscopy today, follow up Thank you very much, Dr. Xiong, for this consult. Please call for questions.
--- NOTE | 2019-06-08 07:00 | NUR ---
RCD PT AT BED PT IS ALERT AND ORIENTED PT RESTING ON BED NO IV PATENT BED LOW AND LOCKED CALL LIGHT IN REACH
[2019-06-08] MEDS: SUCRALFATE 1 GM TAB PO SCH ×2 (07:30→11:30)
[2019-06-08 08:00] VITALS: BP 110/58
[2019-06-08] MEDS ORDERED: POTASSIUM CHLORIDE 20 MEQ TAB CR PO ONE ×2 (09:00→11:45)
[2019-06-08 09:16] VITALS: BP 110/58
[2019-06-08] MEDS ORDERED: SODIUM CHLORIDE 0.9% 250ML 250 ML ONE (09:54)
[2019-06-08 10:07] LABS: BASOPHILS % 0.7 % (0.0-1.0); EOSINOPHILS # (AUTO) 0.1 (0.0-0.4); HEMATOCRIT 29.4 % (34.2-44.1); HEMOGLOBIN 9.9 g/dL (12.0-16.0); LYMPHOCYTES # (AUTO) 1.6 (1.0-3.2); MEAN CORPUSCULAR HEMOGLOBIN 30.3 pg (28-32); MEAN CORPUSCULAR HGB CONC 33.7 g/dL (31-35); MEAN CORPUSCULAR VOLUME 89.9 fL (81-99); MONOCYTES # (AUTO) 0.3 (0.2-0.8); MONOCYTES % 6.2 % (4.4-11.3); NEUTROPHILS # (AUTO) 3.3 (2.1-6.9); NEUTROPHILS % 60.4 % (38.7-80.0); PLATELET COUNT 182 x10e3/uL (140-360); RED BLOOD COUNT 3.27 x10e6/uL (3.6-5.1); RED CELL DISTRIBUTION WIDTH 13.3 % (11.7-14.4)
[2019-06-08 10:30] LABS: ANION GAP 10.4 mmol/L (8-16); BLOOD UREA NITROGEN 5 mg/dL (7-26); BUN/CREATININE RATIO 9 (6-25); CALCIUM 8.1 mg/dL (8.4-10.2); CARBON DIOXIDE 21 mmol/L (22-29); CHLORIDE 109 mmol/L (98-107); CREATININE, SERUM 0.56 mg/dL (0.57-1.11); EST GLOMERULAR FILTRATION RATE > 60 ML/MIN (60-); GLUCOSE 122 mg/dL (74-118); POTASSIUM 3.4 mmol/L (3.5-5.1); SODIUM 137 mmol/L (136-145)
[2019-06-08] MEDS ORDERED: PANTOPRAZOLE SOD 40 MG TABEC PO NR (10:30)
--- NOTE | 2019-06-08 11:00 | NUR ---
PAGED AND NOTIFIED THE LAB REPORT TO DR ESPINO GOT NEW ORDERS
[2019-06-08 11:55] VITALS: BP 144/88
[2019-06-08] MEDS ORDERED: CARAFATE1 GM/10 ML PO (12:13)
[2019-06-08] MEDS ORDERED: RANITIDINE HCL300 MG PO (12:15)
[2019-06-08] MEDS ORDERED: SUCRALFATE1 GM PO (12:15)
--- NOTE | 2019-06-08 14:57 | NUR ---
PT WENT HOME IN SAFE CONDITION WITH HER SISTER
--- NOTE | 2019-06-08 16:00 | NUR ---
Dictated DC summary: [id number]
--- NOTE | 2019-06-08 16:35 | Discharge Summary ---
ADMITTING DIAGNOSES: 1. Acute upper gastrointestinal bleeding. 2. History of Francisco-en-Y gastric bypass. 3. Chronic anemia. DISCHARGE DIAGNOSES: 1. Status post EGD. 2. Endoscopically proven gastric ulcer. 3. Acute anemia secondary to acute upper gastrointestinal bleeding. 4. Anemia secondary to chronic disease. 5. History of Francisco-en-Y gastric bypass. 6. Vitamin B12 deficiency. HOSPITAL COURSE: This is a 48-year-old woman who was initially admitted to [facility] with diagnosis of acute on chronic anemia secondary to upper gastrointestinal bleeding. During this hospitalization, the patient underwent upper endoscopy, which revealed 1.5 cm marginal ulcer without any evidence of active bleeding. EGD was performed by her reinforcing iron and rebar workers, namely Dr. Jonathan Xiong. The patient also seen by staff car rental clerk namely, Dr. Micah Munoz because of her acute on chronic anemia. The patient was infused intravenous iron during this hospitalization. Moreover, she was transfused 2 units of packed red blood cells during this hospital stay. On the day of discharge, hemoglobin was 9.9 g/dL. The patient's vitamin B12 level was low with a value of 256. CONDITION ON DISCHARGE: Stable. On discharge, she was tolerating full liquid diet. DISCHARGE MEDICATIONS: 1. Vitamin B12 1000 mcg intramuscular every two weeks. 2. Carafate 1 g t.i.d. for meals. 3. Pantoprazole 40 mg b.i.d. 4. Ranitidine 300 mg q.h.s. 5. Mitchells 5/325 one daily as needed for pain. FOLLOWUP INSTRUCTIONS: The patient instructed to follow up with her primary care physician namely Dr. Phil Xiong within two weeks. The patient instructed to follow with Dr. Jonathan Xiong within 3 weeks. MD SORAIDA Covarrubias/RICHI /[id number] cc: MD Micah Low MD
[2019-06-08] MEDS ORDERED: PANTOPRAZOLE SOD 40 MG TABEC PO SCH (17:00)
--- NOTE | 2019-06-08 22:33 | NUR ---
Pulmonary Critical Care Medicine DATE OF CONSULTATION: 06/08/2019 SUBJECTIVE able to ambulate in the room no further clinical bleeding EGD with 1.5 cm ulcer REVIEW OF SYSTEMS: no headaches, no rash OBJECTIVE: VITAL SIGNS: current vital signs noted and reviewed per the chart record. GENERAL: no acute distress. Alert and calm. HEENT: Normocephalic and atraumatic. NECK: Supple. Throat midline. LUNGS: Bilateral air entry, clear. CARDIOVASCULAR: S1 and S2. No murmurs, rubs, or gallops. ABDOMEN: Soft and nontender. EXTREMITIES: No clubbing, no cyanosis, no edema. INTEGUMENT: No rash. No purpura. LABORATORY DATA: k 3.8, cr 0.93 IMPRESSION AND PLAN: 1. Acute/subacute gastrointestinal bleed, likely peptic ulcer disease. 2. Anemia, blood loss and other factors. 3. Chronic anemia with iron deficiency as a component, on outpatient injections. 4. History of bariatric surgery, Francisco-en-Y. 5. Hypotension, dizziness. Due to acute bleed outpatient follow up PPI carafate short term maintain iron, b12, vitamin levels Thank you very much, Dr. Xiong, for this consult. Please call for questions.
== END 2019-06-08 14:37 | disposition home or self-care (01) | DRG 384 ==
LOC: FSED 19:51 → ERHOLD 20:56 → ICU 23:11 → MED/SURG2 06-06 19:55
PROC: 30233N1 Transfusion of Nonautologous Red Blood Cells into Peripheral Vein, Percutaneous Approach (ICD-10-PCS; 2019-06-06)
PROC: 0DB68ZX Excision of Stomach, Via Natural or Artificial Opening Endoscopic, Diagnostic (ICD-10-PCS; 2019-06-07)
PROC: 0DBA8ZX Excision of Jejunum, Via Natural or Artificial Opening Endoscopic, Diagnostic (ICD-10-PCS; principal; 2019-06-07 12:45)
DX: K25.3 Acute gastric ulcer without hemorrhage or perforation (principal); D62 Acute posthemorrhagic anemia; D81.9 Combined immunodeficiency, unspecified; Z98.84 Bariatric surgery status; E53.8 Deficiency of other specified B group vitamins; K20.9 Esophagitis, unspecified; E77.8 Other disorders of glycoprotein metabolism; I95.9 Hypotension, unspecified; E66.01 Morbid (severe) obesity due to excess calories; Z68.31 Body mass index [BMI] 31.0-31.9, adult; Z88.0 Allergy status to penicillin; Z91.048 Other nonmedicinal substance allergy status; Z87.891 Personal history of nicotine dependence; E87.6 Hypokalemia
CPT/HCPCS: 36415; 43239; 80048; 80053; 82607; 82728; 83540; 83605; 84466; 85025; 85610; 85730; 86850; 86900; 86920; 88305; 88312; 96365; 99284; J1750; J2250; J3010; J3420; J7030; J7050; P9016

== ENCOUNTER 2021-07-01 15:11 | Emergency (ER) | payer BC, OTHER ==
[~2021-07-01] VITALS: Ht 170.2 cm; Wt 93.4 kg
[~2021-07-01 15:11] MED LIST changes: +CARAFATE1 GM/10 ML PO; +RANITIDINE HCL300 MG PO; +SUCRALFATE1 GM PO
== END 2021-07-01 16:42 | disposition home or self-care (01) ==
LOC: FSED 15:29
DX: K27.9 Peptic ulcer, site unspecified, unspecified as acute or chronic, without hemorrhage or perforation (principal); D64.9 Anemia, unspecified; M54.9 Dorsalgia, unspecified; Z88.0 Allergy status to penicillin; Z91.048 Other nonmedicinal substance allergy status; Z98.84 Bariatric surgery status; Z90.710 Acquired absence of both cervix and uterus; Z98.890 Other specified postprocedural states; Z79.899 Other long term (current) drug therapy
CPT/HCPCS: 80048; 80076; 82553; 84484; 85025; 85610; 99283

== ENCOUNTER → 2021-07-05 | Day surgery (SDC) | payer BC, OTHER ==
[~2021-07-05] MED LIST changes: +FENTANYL CITRATE/PF 100MCG/2 ML INJ ONE; +GLUCAGON FOR INJ 1 MG VIAL ONE; +HYOSCYAMINE SULFATE 0.5 MG/ML INJ ONE; +IRON SUCROSE 100 MG in SODIUM CHLORIDE 0.9% 100 ML 100 ML IV ONE; +KETAMINE HCL INJ 50 MG/ML 10 ML VIAL ONE; +LIDOCAINE HCL 2% LOCAL INJ 5 ML SDV VIAL INJ ONE; +MIDAZOLAM HCL 2 MG/2 ML VIAL ONE; +PROPOFOL IV EMULSION 10 MG/ML 20 ML VIAL ONE
[2021-07-05 15:45] VITALS: BP 115/68
== END | disposition home or self-care (01) ==
LOC: OR 11:20
PROVIDERS: ATTEND Internal Medicine Gastroenterology
DX: K25.9 Gastric ulcer, unspecified as acute or chronic, without hemorrhage or perforation (principal); K29.60 Other gastritis without bleeding; K21.9 Gastro-esophageal reflux disease without esophagitis; K64.8 Other hemorrhoids; Z98.84 Bariatric surgery status; D50.9 Iron deficiency anemia, unspecified; R42 Dizziness and giddiness; Z88.0 Allergy status to penicillin; Z68.31 Body mass index [BMI] 31.0-31.9, adult
CPT/HCPCS: 43235; 45378; 93005; C9113; J1610; J1756; J1980; J2001; J2250; J2704; J3010; U0002; 43239; 43255

== ENCOUNTER → 2021-09-06 | Day surgery (SDC) | payer OTHER ==
[~2021-09-06] MED LIST changes: -GLUCAGON FOR INJ 1 MG VIAL ONE; -HYOSCYAMINE SULFATE 0.5 MG/ML INJ ONE; -IRON SUCROSE 100 MG in SODIUM CHLORIDE 0.9% 100 ML 100 ML IV ONE; -KETAMINE HCL INJ 50 MG/ML 10 ML VIAL ONE
[2021-09-06 09:30] VITALS: BP 116/82
== END | disposition home or self-care (01) ==
LOC: OR 07:28
PROVIDERS: ATTEND Internal Medicine Gastroenterology
DX: Z09 Encounter for follow-up examination after completed treatment for conditions other than malignant neoplasm (principal); Z87.19 Personal history of other diseases of the digestive system; Z98.84 Bariatric surgery status; K21.9 Gastro-esophageal reflux disease without esophagitis; D50.9 Iron deficiency anemia, unspecified; E66.9 Obesity, unspecified; R00.1 Bradycardia, unspecified; Z91.048 Other nonmedicinal substance allergy status; Z88.0 Allergy status to penicillin; Z01.812 Encounter for preprocedural laboratory examination; Z20.822 Contact with and (suspected) exposure to COVID-19
CPT/HCPCS: 43235; J2001; J2250; J3010; U0002

== ENCOUNTER → 2022-05-02 | Day surgery (SDC) | payer OTHER ==
[~2022-05-02] MED LIST changes: +CALCET TABLET1 EACH PO; +CANDICIDAL CAP1 EACH PO; -FENTANYL CITRATE/PF 100MCG/2 ML INJ ONE; +FISH OIL 1,0001 EAC7 PO; +MAGNESIUM OXID400 MG PO; +METOCLOPRAMIDE HCL 10 MG/2ML VIAL IV ONE; +POTASSIUM99 M1 PO; +POVIDONE IODINE 0.05% 0.05 % ML PO ONE; +PROBIOTIC & AC1 EACH PO; +PROPOFOL IV EMULSION 10 MG/ML 20 ML VIAL IV ONE; -PROPOFOL IV EMULSION 10 MG/ML 20 ML VIAL ONE; +VENOFER100 MG/5 M PO; +VITAMIN B-121000 MCG PO; +ZINC CHELATED50 M2 PO
[2022-05-02 08:20] VITALS: BP 118/86
== END | disposition home or self-care (01) ==
LOC: OR 06:45
PROVIDERS: ATTEND Internal Medicine Gastroenterology
DX: Z09 Encounter for follow-up examination after completed treatment for conditions other than malignant neoplasm (principal); K25.9 Gastric ulcer, unspecified as acute or chronic, without hemorrhage or perforation; Z98.84 Bariatric surgery status; D50.9 Iron deficiency anemia, unspecified; I10 Essential (primary) hypertension; Z88.0 Allergy status to penicillin; Z01.810 Encounter for preprocedural cardiovascular examination; Z79.899 Other long term (current) drug therapy
CPT/HCPCS: 43235; 93005; C9113; J2001; J2250; J2704; J2765

== ENCOUNTER → 2022-12-04 | Outpatient (CLI) | payer OTHER ==
[~2022-12-04] MED LIST changes: -LIDOCAINE HCL 2% LOCAL INJ 5 ML SDV VIAL INJ ONE; -METOCLOPRAMIDE HCL 10 MG/2ML VIAL IV ONE; -MIDAZOLAM HCL 2 MG/2 ML VIAL ONE; -POVIDONE IODINE 0.05% 0.05 % ML PO ONE; -PROPOFOL IV EMULSION 10 MG/ML 20 ML VIAL IV ONE
== END ==
LOC: RAD 14:08
PROVIDERS: ATTEND Internal Medicine Gastroenterology
DX: Z98.890 Other specified postprocedural states (principal)
CPT/HCPCS: 74018